=== PATIENT | male | born 2005 | race Two or more races ===

== ENCOUNTER 2025-07-29 17:59 | Emergency (ER) | payer MEDICAID ==
[~2025-07-29] VITALS: Ht 180.3 cm; Wt 84.1 kg
--- NOTE | 2025-07-29 19:25 | RADIOLOGY REPORT ---
CLINICAL INDICATION: BLunt injury with pain and swelling TECHNIQUE: NASAL BNE3DI NASAL BONES, 3VW MIN Comparison: None FINDINGS/IMPRESSION: : There is no evidence of acute fracture or dislocation. Soft tissues are unremarkable.
[2025-07-29] MEDS ORDERED: PSEU120T56 PO (19:29)
[2025-07-29] MEDS ORDERED: FLUT16SP2 BOTHNARES (19:29)
--- NOTE | 2025-07-29 19:29 | Physician Documentation ---
History of Present Illness ~ Chief Complaint: Nose Pain Stated Complaint: NOSE PAIN Time Seen by MD: 18:54 HPI 79-year-old male presents to the emergency department for evaluation of nasal trauma. Was boxing and got hit in the tip of the nose. He has mild deformity without epistaxis. Reports he had a prior injury to his nose. Wonders if he has a fracture. Mild nasal congestion noted only. Medication Reconciliation Allergies: Coded Allergies: No Known Allergies (Unverified , 07/29/25) Scheduled Fluticasone Propionate (Flonase), 2 SPRAYS BOTHNARES DAILY Pseudoephedrine HCl (Sudafed 12 Hour), 1 TAB PO Q12H Review of Systems All Other Systems at this time: Reviewed and Negative ENT: Reports: nose pain, nose congestion; Denies: nose bleeding Physical Exam Vital Signs: Temperature: 97.8, Source: Temporal, Heart Rate: 72, Respiratory Rate: 18, BP: 133/78, Pulse Oximetry: 98, Weight: 84.090 General Appearance: alert, WD/WN, mild distress Eye Lid: normal inspection Conjunctiva: normal inspection Cornea: normal inspection Pupils/EOM/Fundus: PERRLA Nose: swelling, deformity, tender; No: eccymosis, intranasal blood, intranasal abrasion, septal hematoma, septal deviation Mouth/Throat: normal mouth inspection Face: normal inspection Head: normal inspection Neck: non-tender Respiratory: normal breath sounds Cardiovascular: normal peripheral pulses Skin: normal color Progress Results/Orders Results/Orders Orders - CELESTINA GARCIA PAC Nasal Bones Complete (07/29/25 19:10) Completed Orders - CELESTINA GARCIA PAC Nasal Bones Complete (07/29/25 19:10) Vital Signs 07/29/25 18:03 Temp 97.8 Pulse 72 Resp 18 B/P (MAP) 133/78 Pulse Ox 98 Medical Decision Making Additional Comment Examination history consistent with nasal contusion without evidence of fracture as read by the radiologist. We will recommend Flonase and Sudafed for congestion and NSAID for information. Patient's safely discharged in the emergency department without evidence of septal hematoma. Departure Disposition: 01 HOME / SELF CARE / HOMELESS Impression: Primary Impression: Contusion of nose Qualified Codes: S00.33XA - Contusion of nose, initial encounter Condition: Stable Additional Instructions: Your x-ray imaging of the nose is reassuring for no fracture. Please begin medications for congestion and take anti-inflammatory. Follow up with the primary care physician and return if symptoms worsen. Thank you for visiting [facility]. Referrals: NO PRIMARY CARE PROVIDER (PCP) Prescriptions Pseudoephedrine HCl (Sudafed 12 Hour) 120 Mg Tablet.er 1 TAB PO Q12H for 10 Days, #20 TAB 0 Refills Prov: CELESTINA GARCIA 07/29/25 Fluticasone Propionate (Flonase) 16 Gm [place].susp 2 SPRAYS BOTHNARES DAILY for 30 Days, #16 GM Prov: CELESTINA GARCIA 07/29/25 Education Educated: Patient Educated regarding: diagnosis, treatment Signature Scribe Signature: . Attestation: . CELESTINA GARCIA PAC Jul 29, 2025 19:29
[2025-07-29 19:55] VITALS: BP 130/72; PULSE 70; RESP 18; TEMP 98.6; O2SAT 99
== END 2025-07-29 19:56 | disposition home or self-care (01) ==
LOC: ER 18:01
DX: S00.33XA Contusion of nose, initial encounter (principal); Z79.899 Other long term (current) drug therapy; X58.XXXA Exposure to other specified factors, initial encounter; Y93.71 Activity, boxing; Y92.89 Other specified places as the place of occurrence of the external cause; Y99.8 Other external cause status
CPT/HCPCS: 70160; 99283